=== PATIENT | female | born 1975 | race Caucasian/White ===

== ENCOUNTER 2019-03-16 18:40 | Emergency (ER) | payer BC ==
--- OUTSIDE RECORDS SUMMARY | 2019-03-16 18:52 | XMS REPORT ---
:1975 Author Organization Jostin Thomson [facility] Care Team Providers Name Role Phone Bri Victor Unavailable Unavailable PROBLEMS Unknown Problems ALLERGIES No Known Allergies ENCOUNTERS Encounter Location Date Diagnosis [facility] [address] [place] [phone] Jan, [address] [phone] Jan, [address] [phone] Jul, [address] [address] Jul, [address] [address] May, [address] [phone] Apr, [facility] [address] [place] [address] Apr, [phone] IMMUNIZATIONS No Known Immunizations SOCIAL HISTORY Never Assessed REASON FOR REFERRAL FUNCTIONAL STATUS PLAN OF CARE VITAL SIGNS MEDICATIONS Medication Instructions Dosage Frequency Start Date End Date Duration Status Amoxicillin Active Hydrochlorothiazide Active Vitamin C Active Sertraline HCl Active Atenolol Active PROCEDURES Procedure Date Ordered Result Body Site Caries Risk Assess and Doc Low Risk Feb 13, 2019 PROPHYLAXIS - ADULT 13yrs and older Feb 13, 2019 RESULTS No Results REASON FOR VISIT cleaning Insurance Providers [facility] Member Patient Patient Patient Patient Patient Subscriber Subscriber Subscriber Group Insurance Plan Plan Plan Plan ID Relationship Address Phone Name Date of ID Name Date of No Type Insurance Insurance Insurance Coverage to Subscriber Address Phone Name Dates [employer] [phone] [employer] self Leonel [id number] BCBS [id number] [employer] [facility] [place] [facility] [place] [address] [place] MEDICAL (GENERAL) HISTORY Type Description Date Medical History high blood pressure Medical History depression Medical History cellulitis
--- OUTSIDE RECORDS SUMMARY | 2019-03-16 18:52 | XMS REPORT ---
:1975 Author Organization [facility] Care Team Providers Name Role Phone Vj Yee Unavailable Unavailable PROBLEMS Unknown Problems ALLERGIES No Information ENCOUNTERS Encounter Location Date Diagnosis [facility] [address] [place] [address] Jan, [address] [address] Jan, [facility] [address] [place] [phone] Jul, [facility] [address] [place] [phone] Jul, [facility] [address] [place] [phone] May, [address] [address] Apr, [facility] [address] [place] [address] Apr, [phone] IMMUNIZATIONS No Known Immunizations SOCIAL HISTORY Never Assessed REASON FOR REFERRAL FUNCTIONAL STATUS PLAN OF CARE VITAL SIGNS MEDICATIONS Medication Instructions Dosage Frequency Start Date End Date Duration Status Atenolol Active PROCEDURES Procedure Date Ordered Result Body Site PERIODIC ORAL EXAMINATION Feb 13, 2019 RESULTS No Results REASON FOR VISIT Insurance Providers [facility] Member Patient Patient Patient Patient Patient Subscriber Subscriber Subscriber Group Insurance Plan Plan Plan Plan ID Relationship Address Phone Name Date of ID Name Date of No Type Insurance Insurance Insurance Coverage to Subscriber Address Phone Name Dates [employer] [phone] [employer] self Leonel [id number] BCBS [id number] [employer] [facility] [place] [facility] [place] [phone] [place] MEDICAL (GENERAL) HISTORY Type Description Date Medical History high blood pressure Medical History depression Medical History cellulitis
--- OUTSIDE RECORDS SUMMARY | 2019-03-16 18:52 | XMS REPORT | Continuity of Care Document ---
:1975 External Reference #:[id number] Author Name Ignacio Rick MD (transmitted by agent of provider Venice Jean) Address [address] [place] [address] Care Team Providers Name Role Phone Tere Galeana MD - Adolescent Care Team Information Cash Management Officer Medicine Problems Active Problems Provider Date Disturbance in sleep behavior Ondina Saavedra MD Onset: 12/18/2014 Morbid obesity Ondina Saavedra MD Onset: 12/18/2014 Ostium secundum type atrial septal Lloyd Perez M.D., [facility] Onset: 08/2015 defect Tachycardia Lloyd Perez M.D., [facility] Onset: 10/28/2015 Hypersomnia with sleep apnea Ondina Saavedra MD Onset: 02/28/2015 Obstructive sleep apnea syndrome Ondina Saavedra MD Onset: 02/28/2015 Social History Type Date Description Comments Sex Unknown ETOH Use Drinks Alcoholic Beverages Occasionally Tobacco Use Start: Unknown Patient has never smoked Recreational Drug Use Denies Drug Use Smoking Status Reviewed: 02/22/19 Patient has never smoked Exercise Type/Frequency Exercises sporadically walks 15-20 minutes daily at work breaks Allergies, Adverse Reactions, Alerts Description No Known Drug Allergies Medications Active Medications SIG Qnty Indications Ordering Provider Date Ibuprofen 1 by mouth three Unknown 600mg Tablets times a day as needed Atenolol 1 by mouth every Unknown 25mg Tablets day Vitamin D Take 1 Capsule By Unknown (Ergocalciferol) Mouth Once A Week For 12 Weeks [id number] Capsules Sertraline HCL Take 1 Tablet By Unknown 25mg Mouth Once Daily Tablets For 14 Days Then Increase To 2 Tabs Daily - taking 2 now Immunizations Description No Information Available Vital Signs Date Vital Result Comment 02/22/2019 3:12pm Height 63 inches 5'3" Weight 345.00 lb Heart Rate 81 /min BP Systolic 124 mmHg BP Diastolic 85 mmHg O2 % BldC Oximetry 93 % BMI (Body Mass Index) 61.1 kg/m2 10/28/2015 9:01am Height 63 inches 5'3" Weight 267.00 lb Heart Rate 83 /min BP Systolic 130 mmHg right arm large cuff BP Diastolic 90 mmHg right arm large cuff BP Systolic Sitting 132 mmHg left arm large cuff BP Diastolic Sitting 88 mmHg left arm large cuff BP Systolic Standing 128 mmHg laeft arm large cuff BP Diastolic Standing 88 mmHg laeft arm large cuff Body Temperature 97.6 F BMI (Body Mass Index) 47.3 kg/m2 Ejection Fraction 60-65% 07/29/15 Results Description No Information Available Procedures Description No Information Available Medical Devices Description No Information Available Encounters Description No Information Available Assessments Date Code Description Provider 02/22/2019 E66.9 Obesity, unspecified Ignacio Rick MD 02/22/2019 G47.33 Obstructive sleep apnea (adult) (pediatric) Ignacio Rick MD 02/22/2019 I10 Essential (primary) hypertension Ignacio Rick MD Plan of Treatment 02/22/2019 - Ignacio Rick MDE66.9 Obesity, unspecifiedNew Orders:EGD, Ordered: 02/22/19Comments:Risk and benefits of the procedure were discussed with patient.Follow up:No f/u likely [id number] Obstructive sleep apnea (adult ) (pediatric)Comments:Risk and benefits of the procedure were discussed with patient.Follow up:No f/u likely [id number] Essential (primary) hypertensionComments:Risk and benefits of the procedure were discussed with patient.Follow up:No f/u likely needed Functional Status Description No Information Available Mental Status Description No Information Available Referrals Description No Information Available
[2019-03-16] MEDS ORDERED: Clindamycin 600 MG/D5W BAG(*) 600 MG/50 ML BAG IV ONE (19:35)
--- NOTE | 2019-03-16 19:45 | ED ---
Skin Complaint - HPI Summary HPI Summary: 43-year-old female presents with rash to left leg for the past week. States that she had cellulitis on the right leg and was treated with keflex. States that she had a bumping her left leg and had a bruise there. She states the bruise change to a hematoma. And then it seemed to get infected. She states she's had some spreading redness. She was placed on Bactrim yesterday. She denies any fevers or chills. States redness continues to spread. She is not diabetic. - History of Current Complaint Chief Complaint: EDRashSkinAbscess Time Seen by Provider: 03/16/19 19:08 Stated Complaint: LT LEG SWOLLEN PER PT Pain Intensity: 2 - Allergy/Home Medications Allergies/Adverse Reactions: Allergies Allergy/AdvReac Type Severity Reaction Status Date / Time No Known Allergies Allergy Verified 03/16/19 18:41 Home Medications: Home Medications Atenolol/Chlorthalidone [Atenolol/Chlorthalidone 50-25 mg-] 1 tab PO DAILY 03/16 [History Confirmed 03/16/19] Ergocalciferol CAP* [Drisdol CAP*] 1 cap PO WEEKLY 03/16/19 [History Confirmed 03/16/19] PMH/Surg Hx/FS Hx/Imm Hx Endocrine/Hematology History: Reports: Hx Anemia - TAKES IRON Denies: Hx Anticoagulant Therapy Cardiovascular History: Reports: Hx Hypertension History: Denies: Hx Acute Renal Failure, Hx Benign Prostatic Hyperplasia, Hx Chronic Renal Failure Musculoskeletal History: Denies: Hx Arthritis, Hx Back Problems Sensory History: Reports: Hx Contacts or Glasses Opthamlomology History: Reports: Hx Contacts or Glasses Psychiatric History: Denies: Hx Anxiety, Hx Attention Deficit Hyperactivity Disorder, Hx Eating Disorder, Hx Depression, Hx Panic Disorder, Hx Post Traumatic Stress Disorder, Hx Inpatient Treatment, Hx Community Mental Health Tx, Hx Bipolar Disorder - Surgical History Surgery Procedure, Year, and Place: D&C MARCH 2015 Hx Anesthesia Reactions: No Infectious Disease History: No Infectious Disease History: Denies: Hx Clostridium Difficile, Hx Hepatitis, Hx Human Immunodeficiency Virus (HIV), Hx of Known/Suspected MRSA, Hx Shingles, Traveled Outside the [place] in Last 30 Days - Family History Known Family History: Positive: Non-Contributory - Social History Alcohol Use: Rare Substance Use Type: Reports: None Smoking Status (MU): Never Smoked Tobacco Review of Systems Negative: Fever Negative: Chest Pain Negative: Shortness Of Breath Positive: Rash All Other Systems Reviewed And Are Negative: Yes Physical Exam Triage Information Reviewed: Yes Vital Signs On Initial Exam: Initial Vitals Temp Pulse Resp BP Pulse Ox 97.1 F 82 22 164/90 96 03/16/19 18:42 03/16/19 18:42 03/16/19 18:42 03/16/19 18:42 03/16/19 18:42 Vital Signs Reviewed: Yes Appearance: Positive: Well-Appearing Skin: Positive: Warm, Dry, Other - blister like lesion left leg with erythema to left lower leg Head/Face: Positive: Normal Head/Face Inspection Eyes: Positive: Normal, Conjunctiva Clear ENT: Positive: Pharynx normal Respiratory/Lung Sounds: Positive: Clear to Auscultation, Breath Sounds Present Cardiovascular: Positive: Normal, RRR Musculoskeletal: Positive: Strength/ROM Intact - left leg Neurological: Positive: Normal Psychiatric: Positive: Normal Diagnostics - Vital Signs Vital Signs Temp Pulse Resp BP Pulse Ox 03/16/19 18:42 97.1 F 82 22 164/90 96 - Laboratory Result Diagrams: 03/16/19 20:05 03/16/19 20:05 Lab Statement: Any lab studies that have been ordered have been reviewed, and results considered in the medical decision making process. Course/Dx - Course Course Of Treatment: 43-year-old female presents with rash to left leg for the past week. States that she had cellulitis on the right leg and was treated with keflex. States that she had a bumping her left leg and had a bruise there. She states the bruise change to a hematoma. And then it seemed to get infected. She states she's had some spreading redness. She was placed on Bactrim yesterday. She denies any fevers or chills. States redness continues to spread. She is not diabetic. On exam has blisterlike lesion to the left jc with surrounding erythema. Vitals stable. wbc 12. crp elevated. since just started bactrim as not failed outpt yet. will add on augmentin for more coverage. told follow up with primary for wound check. patient understand and agrees with plan. - Differential Diagnoses - Skin Complaint Differential Diagnoses: Abscess, Cellulitis, Contact Dermatitis - Diagnoses Provider Diagnoses: Cellulitis of left leg Discharge ED - Sign-Out/Discharge Documenting (check all that apply): Patient Departure Patient Received Moderate/Deep Sedation with Procedure: No - Discharge Plan Condition: Good Disposition: HOME Prescriptions: Amoxicillin/Clavulanate TAB* [Augmentin TAB 500 mg*] 500 mg PO BID #19 tab Patient Education Materials: Cellulitis (ED) Referrals: Kervin MIGUEL,Tere Jimenez [Primary Care Provider] - Additional Instructions: take augmentin twice a day for 10 days continue bactrim Follow up with primary within 3 days elevate leg Return to ED if redness continues to spread, develop fever, or any new or worsening symptoms - Billing Disposition and Condition Condition: GOOD Disposition: Home
[2019-03-16 20:12] LABS: ABS Basophils 0.1 10^3/ul (0-0.2); ABS Eosinophils 0.5 10^3/ul (0-0.6); ABS Lymphocytes 3.7 10^3/ul (1.0-4.8); ABS Monocytes 0.7 10^3/ul (0-0.8); ABS Neutrophils 7.1 10^3/ul (1.5-7.7); Hematocrit 40 % (35-47); Hemoglobin 13.1 g/dL (12.0-16.0); Lymphocyte % 30.6 %; Mean Corpuscular HGB Conc 33 g/dL (31-36); Mean Corpuscular Hemoglobin 28 pg (27-31); Mean Corpuscular Volume 83 fL (80-97); Mean Platelet Volume 8.4 fL (7.4-10.4); Nucleated Red Blood Cells % 0.1; Platelet Count 281 10^3/uL (150-450); Red Blood Count 4.76 10^6 /uL (3.70-4.87); Red Cell Distribution Width 14 % (10-15)
[2019-03-16 20:30] LABS: Albumin 3.8 g/dL (3.2-5.2); Albumin/Globulin Ratio 1.1 (1-3); BUN/Creatinine Ratio 16.2 (8-20); C Reactive Protein 31.2 mg/L (<8.01); Calcium 9.3 mg/dL (8.6-10.3); EGFR African American 65.2 (>60); EGFR Non-African American 53.9 (>60); Globulin 3.4 g/dL (2-4); Potassium 3.2 mmol/L (3.5-5.0); Total Bilirubin 0.4 mg/dL (0.2-1.0); Total Protein 7.2 g/dL (6.4-8.9)
[2019-03-16] MEDS ORDERED: Potassium Chlor TAB* 20 MEQ TAB.ER PO ONE (21:07)
[2019-03-16] MEDS ORDERED: Amoxicillin/Clavulanate TAB* 500 MG PO ONE (21:18)
[2019-03-16 21:47] VITALS: BP 132/76
== END 2019-03-16 21:45 | disposition home or self-care (01) ==
LOC: ED 18:40
DX: L03.116 Cellulitis of left lower limb (principal); Z79.899 Other long term (current) drug therapy; I10 Essential (primary) hypertension; D64.9 Anemia, unspecified
CPT/HCPCS: 36415; 80053; 83605; 85025; 86140; 86618; 87040; 87070; 87205; 96365; 99282; A9270-GY

== ENCOUNTER 2020-04-01 07:30 | Inpatient (IN) ==
[~2020-04-01 07:30] MED LIST: Buffered Lidocaine 1% SYRIN 1 ml INTRADERM ONE
[2020-04-01] MEDS ORDERED: ceFAZolin 1 GM ADVAN 1 GM ADDV.VIAL IVPB ONE (07:50)
[2020-04-01] MEDS ORDERED: ceFAZolin 2 GM PREMIX 2 GM/50 ML BAG ONE (07:50)
[2020-04-01] MEDS ORDERED: Buffered Lidocaine 1% SYRIN 1 ml INTRADERM ONE (07:51)
[2020-04-01] MEDS ORDERED: Heparin 5000 UNITS/ML 1 mL VIAL ONE (07:55)
[2020-04-01] MEDS ORDERED: Succinylcholine 200 mg VIAL 20 mg/ml 10 ml VIAL (200 mg) ONE (08:10)
[2020-04-01] MEDS ORDERED: Ondansetron 4 mg VIAL 2 MG/ML 2 ml VIAL ONE (08:10)
[2020-04-01] MEDS ORDERED: Propofol 10 MG/ML 20 ML BTL ONE (08:10)
[2020-04-01] MEDS ORDERED: fentaNYL 250 mcg/5 ml 50 MCG/ML 5 ml VIAL (250 MCG) ONE (08:13)
[2020-04-01] MEDS ORDERED: Midazolam 2 mg/2 ml VIAL 1 mg/ml 2 ml VIAL (2 mg) ONE (08:13)
[2020-04-01] MEDS ORDERED: Lidocaine 2% PF 5 ML VIAL ONE (08:14)
[2020-04-01] MEDS ORDERED: Bupivacaine 0.5% 50 ML MDV VIAL ONE (08:16)
[2020-04-01] MEDS ORDERED: Methylene Blue 0.5 % 50 MG/10 ML AMP IV ONE (08:16)
[2020-04-01] MEDS: Lactated Ringers 1000 ml BAG 1,000 ML IV SCH ×3 (08:29→22:51)
[2020-04-01] MEDS ORDERED: Rocuronium 50 mg VIAL 10 mg/ml 5 ml VIAL (50 mg) ONE ×3 (08:46→13:11)
[2020-04-01] MEDS ORDERED: Dexamethasone IV 4 MG/ML VIAL 1 ml VIAL ONE (10:40)
[2020-04-01] MEDS ORDERED: Glycopyrrolate IV 0.2 MG/ML 1 ML VIAL ONE (10:40)
[2020-04-01] MEDS ORDERED: Naloxone 0.4 mg VIAL 0.4 mg/ml 1 ml VIAL IV PRN (10:56)
[2020-04-01] MEDS ORDERED: DiMENhydriNATE IV 50 mg/ml 1 ml VIAL IV PUSH PRN (10:56)
[2020-04-01] MEDS ORDERED: EPHEDrine (Pressors) 50 MG/ML VIAL ONE (11:22)
[2020-04-01] MEDS ORDERED: HYDROmorphone 1 MG/1 ML SYRINGE ONE (12:53)
[2020-04-01] MEDS ORDERED: Sugammadex 500 MG/5 ML 5 ml VIAL IV PUSH ONE (13:24)
[2020-04-01] MEDS ORDERED: HYDROcodone/ACET. 7.5/325 LIQ 15 ML UDC PO PRN (14:19)
[2020-04-01] MEDS ORDERED: DiMENhydriNATE IV 50 mg/ml 1 ml VIAL ONE (14:58)
[2020-04-01] MEDS ORDERED: fentaNYL 100 mcg/2 ml 50 MCG/ML VIAL ONE (14:58)
[2020-04-01] MEDS: fentaNYL 100 mcg/2 ml 50 MCG/ML VIAL IV PRN ×4 (15:00→15:16)
[2020-04-01] MEDS: HYDROmorphone 0.5 MG/0.5 ML SYRINGE IV SLOW PU PRN (16:15)
[2020-04-01] MEDS: Ondansetron 4 mg VIAL 2 MG/ML 2 ml VIAL IV PRN (18:51)
[2020-04-01] MEDS: Heparin 5000 UNITS/ML 1 mL VIAL SUBCUT SCH (22:51)
[2020-04-02] MEDS: Ondansetron 4 mg VIAL 2 MG/ML 2 ml VIAL IV PRN (01:37)
[2020-04-02] MEDS ORDERED: Prochlorperazine 5 mg/ml 2 ml VIAL (10 mg) IV PRN (04:03)
[2020-04-02] MEDS ORDERED: DiMENhydriNATE IV 50 mg/ml 1 ml VIAL IV PUSH ONE (04:15)
[2020-04-02] MEDS: Lactated Ringers 1000 ml BAG 1,000 ML IV SCH ×2 (05:41→12:34)
[2020-04-02] MEDS: Heparin 5000 UNITS/ML 1 mL VIAL SUBCUT SCH ×3 (05:41→21:29)
[2020-04-02] MEDS: HYDROmorphone 0.5 MG/0.5 ML SYRINGE IV SLOW PU PRN (07:26)
[2020-04-02] MEDS: D5W 1/2 NS KCl 20 meq 1000 ml 1,000 ML IV SCH (15:37)
[2020-04-03] MEDS: D5W 1/2 NS KCl 20 meq 1000 ml 1,000 ML IV SCH (04:02)
[2020-04-03] MEDS: Heparin 5000 UNITS/ML 1 mL VIAL SUBCUT SCH (06:05)
[2020-04-03 08:06] VITALS: BP 137/74
[2020-04-03] MEDS: Ondansetron 4 mg VIAL 2 MG/ML 2 ml VIAL IV PRN (08:28)
== END 2020-04-03 09:30 | disposition home or self-care (01) | DRG 403 ==
LOC: AA 07:32 → SSU 15:52
PROVIDERS: ADMIT Surgery; ATTEND Surgery

== ENCOUNTER 2020-04-28 13:28 | Inpatient (IN) ==
[2020-04-28] MEDS ORDERED: NS 0.9% 1000 ml BAG 1,000 ML IV ONE (14:13)
[2020-04-28] MEDS ORDERED: Morphine 4 MG/ML VIAL (1 ml) IV ONE (14:13)
[2020-04-28 14:34] LABS: ABS Lymphocytes 1.1 10^3/ul (1.0-4.8); ABS Monocytes 0.6 10^3/ul (0-0.8); Eosinophil % 0.1 %; Hematocrit 44 % (35-47); Hemoglobin 15.2 g/dL (12.0-16.0); Lymphocyte % 10.9 %; Mean Corpuscular HGB Conc 34 g/dL (31-36); Mean Corpuscular Hemoglobin 28 pg (27-31); Mean Corpuscular Volume 83 fL (80-97); Mean Platelet Volume 10.1 fL (7.4-10.4); Platelet Count 271 10^3/uL (150-450); Red Blood Count 5.36 10^6 /uL (3.70-4.87); Red Cell Distribution Width 14 % (10-15); White Blood Count 9.7 10^3/uL (3.5-10.8)
[2020-04-28 14:40] LABS: Albumin 4.4 g/dL (3.2-5.2); Albumin/Globulin Ratio 1.4 (1-3); BUN/Creatinine Ratio 10.6 (8-20); C Reactive Protein 13.87 mg/L (<8.01); Calcium 10.1 mg/dL (8.6-10.3); EGFR African American 57.4 (>60); EGFR Non-African American 47.4 (>60); Globulin 3.2 g/dL (2-4); Total Bilirubin 0.9 mg/dL (0.2-1.0); Total Protein 7.6 g/dL (6.4-8.9)
[2020-04-28 14:42] LABS: Potassium 2.6 mmol/L (3.5-5.0)
[2020-04-28] MEDS ORDERED: KCL 20 MEQ/100 ML IVPREMIX 20 MEQ/100 ML BAG IV ONE (14:48)
[2020-04-28] MEDS ORDERED: Pantoprazole VIAL 40 MG VIAL IV ONE (14:51)
[2020-04-28] MEDS ORDERED: Ondansetron 4 mg VIAL 2 MG/ML 2 ml VIAL IV PRN (15:25)
[2020-04-28] MEDS ORDERED: HYDROmorphone 0.5 MG/0.5 ML SYRINGE IV SLOW PU PRN (15:35)
[2020-04-28] MEDS ORDERED: Pantoprazole VIAL 40 MG VIAL IV SCH (16:00)
[2020-04-28] MEDS ORDERED: Famotidine IV 10 MG/ML 2 ml VIAL (20 mg) IV SLOW PU SCH (16:00)
[2020-04-28] MEDS: NS 0.9% 1000 ml BAG 1,000 ML IV SCH (16:08)
[2020-04-28] MEDS: Sucralfate 1 gm SUSP 1 GM/10 ML UDC PO SCH (18:12)
[2020-04-29] MEDS: Sucralfate 1 gm SUSP 1 GM/10 ML UDC PO SCH ×5 (00:05→23:49)
[2020-04-29] MEDS: NS 0.9% 1000 ml BAG 1,000 ML IV SCH (02:40)
[2020-04-29 06:45] LABS: ABS Basophils 0.1 10^3/ul (0-0.2); ABS Lymphocytes 2.2 10^3/ul (1.0-4.8); ABS Monocytes 0.4 10^3/ul (0-0.8); ABS Neutrophils 4.6 10^3/ul (1.5-7.7); Eosinophil % 0.5 %; Hematocrit 40 % (35-47); Hemoglobin 13.6 g/dL (12.0-16.0); Mean Corpuscular HGB Conc 34 g/dL (31-36); Mean Corpuscular Hemoglobin 28 pg (27-31); Mean Corpuscular Volume 83 fL (80-97); Mean Platelet Volume 9.6 fL (7.4-10.4); Platelet Count 184 10^3/uL (150-450); Red Blood Count 4.78 10^6 /uL (3.70-4.87); Red Cell Distribution Width 14 % (10-15); White Blood Count 7.3 10^3/uL (3.5-10.8)
[2020-04-29 06:52] LABS: BUN/Creatinine Ratio 9.4 (8-20); Calcium 8.7 mg/dL (8.6-10.3); EGFR African American 76.4 (>60); EGFR Non-African American 63.1 (>60); Potassium 2.8 mmol/L (3.5-5.0)
[2020-04-29] MEDS: KCL 20 MEQ/100 ML IVPREMIX 20 MEQ/100 ML BAG IV SCH ×2 (08:29→12:06)
[2020-04-29] MEDS: Pantoprazole VIAL 40 MG VIAL IV SCH (08:29)
[2020-04-29] MEDS ORDERED: Midazolam 10 mg/10 ml VIAL 1 mg/ml 10 ml VIAL (10 mg) ONE (13:12)
[2020-04-29] MEDS ORDERED: fentaNYL 100 mcg/2 ml 50 MCG/ML VIAL ONE (13:12)
[2020-04-29] MEDS: D5W 1/2 NS KCl 20 meq 1000 ml 1,000 ML IV SCH (18:05)
[2020-04-30] MEDS: D5W 1/2 NS KCl 20 meq 1000 ml 1,000 ML IV SCH (02:52)
[2020-04-30] MEDS: Sucralfate 1 gm SUSP 1 GM/10 ML UDC PO SCH (05:59)
[2020-04-30 07:52] VITALS: BP 145/89
[2020-04-30 07:53] LABS: BUN/Creatinine Ratio 5.7 (8-20); Calcium 8.6 mg/dL (8.6-10.3); EGFR African American 84.5 (>60); EGFR Non-African American 69.8 (>60); Potassium 2.8 mmol/L (3.5-5.0)
[2020-04-30] MEDS: Pantoprazole VIAL 40 MG VIAL IV SCH (09:28)
== END 2020-04-30 11:09 | disposition home or self-care (01) | DRG 241 ==
LOC: ED 13:28 → SSU 15:25
PROVIDERS: ADMIT Pediatrics; ATTEND Surgery